=== PATIENT | male | born 1970 | race Caucasian/White ===

== ENCOUNTER 2018-12-21 14:22 | Emergency (ER) | payer MEDICARE ==
[2018-12-21] MEDS ORDERED: predniSONE 20 MG TAB ONE (14:54)
== END 2018-12-21 14:52 | disposition home or self-care (01) ==
LOC: NAV ERS 14:22
DX: J02.9 Acute pharyngitis, unspecified (principal); Z79.01 Long term (current) use of anticoagulants
CPT/HCPCS: 87081; 87430; 99282; J7506

== ENCOUNTER 2021-09-18 17:07 | Emergency (ER) | payer MEDICARE ==
[2021-09-18] MEDS ORDERED: Acetaminophen 500 MG TAB ONE (17:43)
[2021-09-19 08:18] LABS: SARS-CoV-2 PCR by NAA Not Detected (NotDetected)
== END 2021-09-18 17:40 | disposition home or self-care (01) ==
LOC: NAV ERS 17:07
DX: J06.9 Acute upper respiratory infection, unspecified (principal); Z20.822 Contact with and (suspected) exposure to COVID-19; Z79.01 Long term (current) use of anticoagulants
CPT/HCPCS: U0003; U0005

== ENCOUNTER 2021-12-28 10:27 | Emergency (ER) | payer BC, MEDICARE | END 2021-12-28 11:03 | disposition home or self-care (01) | LOC: NAV ERS 10:27 | DX: K52.9 Noninfective gastroenteritis and colitis, unspecified (principal); Z86.718 Personal history of other venous thrombosis and embolism | CPT/HCPCS: 99283 ==

== ENCOUNTER 2022-06-23 21:28 | Emergency (ER) | payer BC, MEDICARE ==
[2022-06-23 22:32] LABS: #Basophils 0.1 thou/uL (0.0-0.2); #Eosinphils 0.1 thou/uL (0.0-0.7); #Lymphocytes 2.4 thou/uL (1.20-3.40); #Monocytes 0.5 thou/uL (0.11-0.59); %Basophils 0.9 % (0.0-1.0); %Eosinophils 2.1 % (0.0-10.0); %Lymphocytes 33.3 % (21.0-51.0); %Monocytes 7.3 % (0.0-10.0); %Neutrophils 56.5 % (42.0-75.0); Hemoglobin 13.3 g/dL (14.0-18.0); Mean Corpuscular HGB CONC 30.3 g/dL (32.0-36.0); Mean Corpuscular Hemoglobin 30.8 pg (27.0-31.0); Mean Platelet Volume 8.7 fL (7.4-10.4); Platelet Count 156 thou/uL (130-400); RBC Distribution Width 12.9 % (11.5-14.5); Red Blood Cell (RBC) Count 4.33 mill/uL (4.70-6.10); White Blood Cell (WBC) Count 7.1 thou/uL (4.8-10.8)
[2022-06-23] MEDS ORDERED: Acetaminophen 325 MG TAB ONE (22:34)
[2022-06-23 22:35] LABS: INR-International Normal Ratio 1.1; PTT 29.9 sec (22.9-36.1); Prothrombin Time 13.8 sec (12.0-14.7)
[2022-06-23 22:49] LABS: ALT (SGPT) 21 U/L (8-55); AST (SGOT) 15 U/L (5-34); Albumin 4.1 g/dL (3.5-5.0); Alkaline Phosphatase 67 U/L (40-110); Anion Gap 14 mmol/L (10-20); BUN (Urea Nitrogen) 26 mg/dL (8.4-25.7); Bilirubin, Total 0.5 mg/dL (0.2-1.2); Calc. Creatinine Clearance 0 mL/min (70-130); Calcium 9.2 mg/dL (7.8-10.44); Carbon Dioxide 25 mmol/L (22-29); Chloride 106 mmol/L (98-107); Estimated GFR 76; Globulin 2.6 g/dL (2.4-3.5); Glucose 116 mg/dL (70-105); Magnesium 1.9 mg/dL (1.6-2.6); Potassium 3.6 mmol/L (3.5-5.1); Protein, Total 6.7 g/dL (6.0-8.3); Sodium 141 mmol/L (136-145)
== END 2022-06-24 00:17 | disposition home or self-care (01) ==
LOC: NAV ERS 21:28
DX: R00.2 Palpitations (principal); G43.909 Migraine, unspecified, not intractable, without status migrainosus
CPT/HCPCS: 70450; 71045; 80053; 83735; 84443; 84484; 85025; 85610; 85730; 93005; 94760

== ENCOUNTER 2023-09-01 10:17 | Emergency (ER) | payer BC | END 2023-09-01 11:28 | disposition home or self-care (01) | LOC: NAV ERS 10:17 | DX: L03.116 Cellulitis of left lower limb (principal); M79.672 Pain in left foot; Z86.718 Personal history of other venous thrombosis and embolism; Z79.01 Long term (current) use of anticoagulants ==

== ENCOUNTER 2024-09-22 01:35 | Emergency (ER) | payer BC | END 2024-09-22 02:05 | disposition home or self-care (01) | LOC: NAV ERS 01:35 | DX: H60.92 Unspecified otitis externa, left ear (principal) | CPT/HCPCS: 99282 ==

== ENCOUNTER 2025-07-31 12:40 | Emergency (ER) | payer BC | END 2025-07-31 14:01 | disposition home or self-care (01) | LOC: NAV ERS 12:40 | DX: M76.52 Patellar tendinitis, left knee (principal); I48.91 Unspecified atrial fibrillation; Z86.718 Personal history of other venous thrombosis and embolism; Z79.01 Long term (current) use of anticoagulants | CPT/HCPCS: 99283 ==